=== PATIENT | male | born 1940 | race Caucasian/White ===

== ENCOUNTER 2016-12-01 04:56 | Inpatient (IN) ==
[2016-11-24 14:49] LABS: Appearance,Urine CLEAR; Bilirubin,Urine NEG (NEG); Color,Urine YELLOW; Glucose,Urine (UA) NEGATIVE (NEG); Leukocyte Esterase,Urine NEG /uL (NEG); Nitrate,Urine NEG (NEG); Protein,Urine NEG (NEG); Specific Gravity,Urine 1.009 (1.000-1.035); Urine Blood NEG mg/dL (<0.03); Urobilinogen,Urine NEG (NEG)
[2016-11-24 15:31] LABS: Basophils # (Auto) 0 K/mcL (0.0-0.3); Basophils % (Auto) 0.4 % (0.0-2.0); Eosinophils # (Auto) 0.1 K/mcL (0.0-0.7); Eosinophils % (Auto) 1.2 % (0.0-7.0); Granulocytes % (Auto) 70.2 % (38.0-78.0); Lymphocytes # (Auto) 1.7 K/mcL (1.5-4.8); Lymphocytes % (Auto) 19.7 % (15.5-49.0); Mean Cell Volume 94.3 fL (80.0-100.0); Mean Corpuscular HGB Conc 33.9 g/dL (31.0-36.0); Monocytes # (Auto) 0.7 K/mcL (0.1-0.9); Monocytes % (Auto) 8.5 % (1.0-12.0); Platelet Count 243 K/mcL (140-440); RBC 4.82 M/mcL (4.50-5.90); Red Cell Distribution Width 12.9 % (11.5-14.5)
[2016-11-24 16:14] LABS: Blood Urea Nitrogen 11 mg/dl (8-23)
[2016-12-01] MEDS ORDERED: oxyCODONE 10 MG TAB.ER.12H PO SCH (05:00)
[2016-12-01] MEDS ORDERED: ceFAZolin 1 GM VIAL IV SCH (05:00)
[2016-12-01] MEDS ORDERED: PREGABALIN 75 MG CAPSULE PO SCH (05:00)
[2016-12-01] MEDS ORDERED: CELECOXIB 200 MG CAPSULE PO SCH (05:00)
[2016-12-01] MEDS ORDERED: HEPARIN 20,000 UNIT/ML VIAL IR ONE (07:06)
[2016-12-01] MEDS ORDERED: LIDOCAINE HCL/PF 100 MG/5 ML SYRINGE IV ONE (07:40)
[2016-12-01] MEDS ORDERED: ePHEDrine 50 MG/ML AMPUL IV ONE (07:40)
[2016-12-01] MEDS ORDERED: GLYCOPYRROLATE 0.2 MG/ML VIAL IV ONE (07:40)
[2016-12-01] MEDS ORDERED: TRANEXAMIC ACID 1,000 MG/10 ML VIAL IV ONE ×2 (07:40→09:38)
[2016-12-01] MEDS ORDERED: PHENYLEPHRINE 10 MG/ML VIAL IV ONE (07:40)
[2016-12-01] MEDS ORDERED: MIDAZOLAM 5 MG/5 ML VIAL IV ONE (07:40)
[2016-12-01] MEDS ORDERED: PROPOFOL 200 MG/20 ML VIAL IV ONE (07:40)
[2016-12-01] MEDS ORDERED: DEXAMETHASONE 10 MG/ML VIAL IV ONE (07:40)
[2016-12-01] MEDS ORDERED: ONDANSETRON 4 MG/2 ML VIAL IV ONE (07:40)
[2016-12-01] MEDS ORDERED: NALOXONE HCL 0.4 MG/ML VIAL IV PRN (08:49)
[2016-12-01] MEDS ORDERED: fentaNYL 100 MCG/2 ML VIAL IV PRN (08:49)
[2016-12-01] MEDS ORDERED: FLUMAZENIL 0.1 MG/ML ML IV PRN (08:49)
[2016-12-01] MEDS ORDERED: ONDANSETRON 4 MG/2 ML VIAL IV PRN ×2 (08:49→09:38)
[2016-12-01] MEDS ORDERED: MEPERIDINE 25 MG/ML SYRINGE IV PRN (08:49)
[2016-12-01] MEDS ORDERED: diphenhydrAMINE 50 MG/ML VIAL IV PRN (08:49)
[2016-12-01] MEDS ORDERED: METOPROLOL TARTRATE 5 MG/5 ML VIAL IV PRN (08:49)
[2016-12-01] MEDS ORDERED: IPRATROPIUM/ALBUTEROL 3 ML AMPUL.NEB NEB PRN (08:49)
[2016-12-01] MEDS ORDERED: ePHEDrine 50 MG/ML AMPUL IV PRN (08:49)
[2016-12-01] MEDS ORDERED: HYDROmorphone 2 MG/ML SYRINGE IV PRN (08:49)
[2016-12-01] MEDS ORDERED: BENZOCAINE/MENTHOL 1 LOZENGE PO PRN ×2 (08:49→09:38)
[2016-12-01] MEDS ORDERED: METHOCARBAMOL 1,000 MG/10 ML VIAL IV PRN (08:49)
[2016-12-01] MEDS ORDERED: ATROPINE SULFATE 0.4 MG/ML VIAL IV PRN (08:49)
[2016-12-01] MEDS ORDERED: LACTATED RINGERS 1,000 ML IV SCH (09:00)
--- NOTE | 2016-12-01 09:37 | Brief Operative Note ---
Date of procedure: 12/01/16 Pre-op diagnosis: Left hip DJD Post-op diagnosis: same Procedure: Left total hip arthroplasty Grafts/Implants: Yes (Depuy Corail KLA 14 stem, +8.5 36mm head, 54 cup, +4 offset liner) Anesthesia: spinal, GLMA Findings: arthritis Complications: none Surgeon: Matt Viramontes Water [employer] Station Engineer: Elias Arriaza Estimated blood loss (cc): 150 Specimens Removed/Pathology: none sent Condition: stable Disposition: PACU
[2016-12-01] MEDS ORDERED: HYDROcodone/APAP 10/325MG TABLET PO PRN (09:38)
[2016-12-01] MEDS ORDERED: POLYETHYLENE GLYCOL 3350 17 GM PACKET PO PRN (09:38)
[2016-12-01] MEDS ORDERED: BISACODYL 10 MG SUPP.RECT PR PRN (09:38)
[2016-12-01] MEDS ORDERED: FLEETS ADULT ENEMA PR PRN (09:38)
[2016-12-01] MEDS ORDERED: MAGNESIUM HYDROXIDE 30 ML ORAL.SUSP PO PRN (09:38)
[2016-12-01] MEDS ORDERED: KETOROLAC 15 MG/ML VIAL IV PRN (09:38)
--- NOTE | 2016-12-01 10:23 | XRay Report ---
CLINICAL INFORMATION: Postsurgical follow-up TECHNIQUE: Intraoperative fluoroscopy and spot films COMPARISON: None. FINDINGS: 0.7 minutes fluoroscopy utilized. Spot films were obtained during left hip replacement surgery IMPRESSION: Intraoperative fluoroscopy and left total hip arthroplasty Interpreted and Authenticated by: Sky Torrez 12/01/16
--- NOTE | 2016-12-01 10:27 | Operative Note ---
DATE OF OPERATION: 12/01/2016 PREOPERATIVE DIAGNOSIS: Left hip degenerative joint disease. POSTOPERATIVE DIAGNOSIS: Left hip degenerative joint disease. PROCEDURE PERFORMED: Left total hip arthroplasty through direct anterior approach using a DePuy Corail KLA coxa vara stem size 14 with a +8.5, 36 mm delta ceramic head ball, a 54 mm [place] cup with a high offset +4 liner. SURGEON: Matt Viramontes MD. ECOLOGY PROFESSOR: Reinaldo Arriaza PA-C. ANESTHESIA: Spinal plus general. DRAINS: None. SPECIMENS: Head and reamings, which were discarded. BLOOD LOSS: 150 mL. COMPLICATIONS: None. POSTOPERATIVE CONDITION: Stable. INDICATIONS FOR SURGERY: This is a 76-year-old male who has had progressive worsening left hip pain. Radiographs showed advanced degenerative arthrosis. FINDINGS AT SURGERY: As above. Post implantation showed satisfactory component position with near equalization of offset and mild limb lengthening. PROCEDURE IN DETAIL: The patient had been seen preoperatively and informed consent had been obtained after discussion of risks and benefits of surgery. Risks including, but not limited to, bleeding, possibly requiring transfusion; infection, possibly requiring implant removal and prolonged IV antibiotics; injury to surrounding structures such as nerves, blood vessels, anesthetic risks; incomplete or no resolution of symptoms; leg length discrepancy; dislocation; fracture; DVT and pulmonary embolus risks; and the possibility of needing further surgery. He understood these risks and wished to proceed. Correct operative site was marked in preoperative holding, and the patient was given spinal anesthesia. He was then taken to the operating room and general anesthesia given. The patient was carefully positioned on the fracture table and left lower extremity was carefully prepped and draped in normal sterile fashion, and a time-out was performed verifying patient name, operative site, and plan. Standard anterior approach incision was made with a scalpel through skin and subcutaneous tissue and then hemostasis obtained with Bovie cautery. Blunt dissection taken down onto the tensor fascia. There was a branch of the lateral femoral cutaneous nerve which was carefully dissected and retracted. We then irrigated with Irrisept and then placed a ring retractor. The tensor fascia was incised in line with the muscle belly and then careful blunt dissection taken medial to the muscle belly. Blunt cobra retractors were placed on the neck and circumflex vessels and vastus fascia were cut and coagulated. We did an anterior capsulectomy and capsule releases out to the trochanter, and then a corkscrew was placed in the femoral head. Osteotome was used under fluoro to identify our approximate neck cut trajectory. We then used the oscillating tip saw to make our neck cut osteotomy and the head was removed. Acetabulum was then exposed. Bone wax was placed on the cut bone surfaces, and the labrum was excised circumferentially, as well as soft tissue removed from the floor. Reaming began with direct medialization and then increasing angle and inclination until we got rim ream with a 53 reamer. We trialed a 54 trial and got press-fit, so a 54 three-hole [place] cup was opened. We then irrigated the acetabulum with Irrisept. After waiting a minute, we copiously pulse lavaged with saline and then impacted the cup at approximately 40 degrees of inclination and 25 degrees anteversion. Once the cup was fully seated, we had good press-fit, so we went ahead and placed a center hole cover. Anterior osteophyte was removed with a curved osteotome, and then a +4 lateralized liner was carefully impacted. Tabs were verified to be flush. We then removed traction from the leg, externally rotated it, and did our capsule release around the inferior neck and posterior neck. Leg was then extended and adducted. Box osteotome was used to gain canal entry and then a rongeur used to lateralize. A sharp tip awl was used to identify canal trajectory, and then a rasp was used to lateralize further. We then began sequentially broaching, initially with the Tri-Lock set. We went up until we had good press-fit at our neck cut level with the Tri-Lock. We placed a high offset trial with a +5 head ball and reduced the hip. We took AP of the nonoperative and operative hips, and we were quite a ways off of our offset. We had suspected this would be the case based off our preoperative templating, so at this point we switched over to Corail stem. We broached up to a size 12 and then used the KLA coxa vara neck trial. The +5 head ball was placed. The hip was reduced. The offset was good. Leg was slightly lengthened. We went ahead and dislocated the hip, and then we noted that the stem was rotationally unstable, so we reamed with flexible reamers up to a 13.5 and then got a 14 stem to seat down. We calcar planed down onto this and trialed with a +8, 5 head ball. This seemed to get us pretty close to our offset with only mild limb lengthening, so we dislocated again, removed the trial stem. A 14 high offset KLA Corail stem was opened. We irrigated the femoral canal with Irrisept. After waiting a minute, we pulse lavaged with saline. We then impacted the stem which seated fully on the neck cut and opened and then a +8.5, 36 delta head ball. The stem was carefully cleaned and dried and then head ball briskly impacted. The hip was reduced and final fluoro images were taken and saved. We then irrigated again with Irrisept. After a minute, again pulse lavaged. Then #1 Vicryl was used to close our tensor fascia, one running proximal and one running distal. A final Irrisept was done and then after a minute final saline, then 2-0 Monocryl for subcutaneous and doc for skin. Xeroform and sterile dressing were placed. The patient was then awakened, extubated, and transferred to recovery in stable condition. [email or web address] Job ID: [id number] Doc ID: [id number] Matt Viramontes MD
--- NOTE | 2016-12-01 10:33 | XRay Report ---
CLINICAL INFORMATION: Postop hip replacement TECHNIQUE: AP pelvis and left hip. Lateral left hip COMPARISON: None. FINDINGS: Status post left total hip arthroplasty. Acetabular and femoral head complements are in anatomic positions. Mild postsurgical soft tissue gas. IMPRESSION: Status post left total hip arthroplasty Interpreted and Authenticated by: Sky Torrez 12/01/16
[2016-12-01] MEDS: 0.9 % SODIUM CHLORIDE 1,000 ML IV SCH ×2 (10:54→20:52)
[2016-12-01] MEDS: 0.9 % SODIUM CHLORIDE 10 ML SYRINGE IV SCH ×2 (15:46→20:54)
[2016-12-01] MEDS: ceFAZolin 1 GM VIAL IV SCH ×2 (15:57→23:56)
[2016-12-01] MEDS: DOCUSATE SODIUM 100 MG CAPSULE PO SCH (20:48)
[2016-12-01] MEDS: ASPIRIN 325 MG ENTERIC COATED TABLET PO SCH (20:50)
[2016-12-01] MEDS ORDERED: SIMVASTATIN 10 MG TABLET PO SCH (21:00)
[2016-12-01] MEDS ORDERED: SENNOSIDES 1 TABLET PO SCH (21:00)
[2016-12-02] MEDS: 0.9 % SODIUM CHLORIDE 10 ML SYRINGE IV SCH (05:38)
--- NOTE | 2016-12-02 07:35 | Discharge Summary ---
[id number] from initiated Date: [] Patient: Vish Menard 76 y/o M admitted on 12/01/16 for Left Total Hip Arthroplasty. Chief Complaint: [] Discharge date: 12/02/16 Hospitalization Hospital course: Pt was admitted for a direct anterior total hip arthroplasty. He underwent the procedure on the day of admission. He was then transfer to the floor for IV pain meds, IV abx, and PT. He spent one night on the floor prior to discharge. He was discharged to home. Discharge diagnosis: L hip osteoarthrosis Exam - Exam Clean and dry: Yes Weight bearing status: as tolerated Ortho Discharge - KIN[facility] - Patient Instructions Diet: Regular Diet Activity: activity as tolerated Total Hip Protocol: Follow activity instructions as provided by Physical Therapy. Dressing Care: May shower in 2 days Patient Education: Total Hip Replacement (DC) Additional Instructions: Discharge Instructions: Do the exercises at home that physical therapy gave you. You are scheduled to start physical therapy at [facility] on November Take your prescription, photo ID, insurance cards, and current medication list with you to your first physical therapy appointment. Take your prescription to cook pickled meat any medication or equipment (such as walker, crutches, toilet riser or C.P.M.) Wear comfortable clothing for your physical therapy. Weight bearing as tolerated. You have the Aquacel Ag dressing, leave in place for 7 days then remove. If dressing becomes soiled (turns black), remove and use gauze 4x4 dressing and silvasorb ointment and change daily. Keep incision clean and dry. You may start showering on post op day #2. To avoid constipation while taking any narcotic pain medication, take an over the counter stool softener/laxative. Use ice packs as directed, on for 20 minutes at a time throughout the day. This and elevation will help with pain and swelling. Call your physician for fevers above 100.5 or pain not controlled by medication. Your prescriptions are with your discharge information. Some medications were electronically transmitted to your pharmacy of choice. - Follow Up Plan Follow Up Appointments: Matt Viramontes MD [Physician] - Disposition: Home, Self-Care Prognosis: Good Rehab Potential: Good Overall status at discharge: patient is progressing back to baseline - Orders For Discharge Prescriptions: Aspirin [Ecotrin] 325 mg PO BID #60 tab.ec HYDROcodone/APAP 5/325MG [[place] 5/325Mg] 1 tab PO Q6HP PRN #60 tablet PRN Reason: Pain Additional Discharge Orders: Physical Therapy at Discharge - [facility] Location: Determined By Patient Walker Location: Determined By Patient Pending Studies Resuscitation Status Full Code Diet Regular Diet Start TueDecember 01 Lunch Acetaminophen/Hydrocodone Bitart ([place] 10/325mg) 0 tab PO Q4HP PRN PRN Reason: Pain Last Admin: 12/01/16 20:50 Dose: 1 tab Aspirin (Ecotrin) 325 mg PO BID JACOBO Last Admin: 12/01/16 20:50 Dose: 325 mg Docusate Sodium (Colace) 100 mg PO BID JACOBO Last Admin: 12/01/16 20:48 Dose: 100 mg Morphine Sulfate (Morphine) 0 mg IV Q1HP PRN PRN Reason: Pain Last Admin: 12/01/16 10:54 Dose: 2 mg Senna (Senokot) 2 tab PO HS JACOBO Last Admin: 12/01/16 20:48 Dose: 2 tab Simvastatin (Zocor) 5 mg PO HS JACOBO Last Admin: 12/01/16 20:49 Dose: 5 mg Sodium Chloride (Saline Flush) 10 ml IV Q8 [facility] Last Admin: 12/02/16 05:38 Dose: Not Given Admin: 12/01/16 20:54 Dose: Not Given Admin: 12/01/16 15:46 Dose: Not Given Shift Summary 12/02/16 04:13 Shift Summary by Kimberly Bae Patient is post-op Left KINZA. A&Ox4. VSS with 2L O2 via nasal cannula to keep sats above 90. Placed FWW in room, but has only been up to bedside to use urinal. Has voided 850 ml since 1900. Patient denies any pain at this time. Dressing to left hip is CDI. Initialized on 12/02/16 04:13 - END OF NOTE
[2016-12-02] MEDS ORDERED: AMIODARONE HCL 200 MG TABLET PO SCH (08:00)
[2016-12-02] MEDS: DOCUSATE SODIUM 100 MG CAPSULE PO SCH (08:32)
[2016-12-02] MEDS: ASPIRIN 325 MG ENTERIC COATED TABLET PO SCH (08:33)
[2016-12-02] MEDS ORDERED: ISOSORBIDE MONONITRATE 30 MG TAB.XL.24H PO SCH (09:00)
== END 2016-12-02 12:00 | disposition home or self-care (01) | DRG 470 ==
LOC: MEDSUR 04:56
PROVIDERS: ADMIT Orthopaedic Surgery; ATTEND Orthopaedic Surgery

== ENCOUNTER 2018-04-13 15:00 | Inpatient (IN) ==
[2018-04-13 18:35] LABS: Appearance,Urine CLEAR; Bilirubin,Urine NEG (NEG); Color,Urine YELLOW; Glucose,Urine (UA) NEGATIVE (NEG); Leukocyte Esterase,Urine NEG /uL (NEG); Protein,Urine NEG (NEG); Specific Gravity,Urine 1.018 (1.000-1.035); Urine Blood NEG mg/dL (<0.03); Urobilinogen,Urine NEG (NEG)
[2018-04-13 19:24] LABS: Blood Urea Nitrogen 14 mg/dl (8-23)
[2018-04-13 19:56] LABS: Basophils # (Auto) 0 K/mcL (0.0-0.3); Basophils % (Auto) 0.5 % (0.0-2.0); Eosinophils # (Auto) 0.2 K/mcL (0.0-0.7); Eosinophils % (Auto) 2.7 % (0.0-7.0); Granulocytes % (Auto) 68.2 % (38.0-78.0); Lymphocytes # (Auto) 1.5 K/mcL (1.5-4.8); Mean Cell Volume 95.9 fL (80.0-100.0); Mean Corpuscular Hemoglobin 32.6 pg (26.0-34.0); Monocytes # (Auto) 0.7 K/mcL (0.1-0.9); Monocytes % (Auto) 8.6 % (1.0-12.0); Platelet Count 216 K/mcL (140-440); RBC 4.33 M/mcL (4.50-5.90); Red Cell Distribution Width 13.5 % (11.5-14.5)
[2018-04-19] MEDS ORDERED: CELECOXIB 200 MG CAPSULE PO SCH ×2 (07:00→09:30)
[2018-04-19] MEDS ORDERED: PREGABALIN 75 MG CAPSULE PO SCH ×2 (07:00→09:30)
[2018-04-19] MEDS ORDERED: oxyCODONE 10 MG TAB.ER.12H PO SCH ×2 (07:00→09:30)
[2018-04-19] MEDS ORDERED: ceFAZolin 1 GM VIAL IV SCH ×2 (07:00→10:30)
[2018-04-19] MEDS ORDERED: TRANEXAMIC ACID 1,000 MG/10 ML VIAL IV ONE (11:15)
[2018-04-19] MEDS ORDERED: KETAMINE 100 MG/ML ML IV ONE (11:15)
[2018-04-19] MEDS ORDERED: MIDAZOLAM 2 MG/2 ML VIAL IV ONE (11:15)
[2018-04-19] MEDS ORDERED: ONDANSETRON 4 MG/2 ML VIAL IV ONE (11:15)
[2018-04-19] MEDS ORDERED: GLYCOPYRROLATE 0.2 MG/ML VIAL IV ONE (11:15)
[2018-04-19] MEDS ORDERED: LIDOCAINE HCL/PF 100 MG/5 ML SYRINGE IV ONE (11:15)
[2018-04-19] MEDS ORDERED: PROPOFOL 200 MG/20 ML VIAL IV ONE (11:15)
[2018-04-19] MEDS ORDERED: ePHEDrine 50 MG/ML AMPUL IV ONE (11:15)
[2018-04-19] MEDS ORDERED: PHENYLEPHRINE 10 MG/ML VIAL IV ONE (11:15)
[2018-04-19] MEDS ORDERED: HEPARIN 10,000 UNIT/ML VIAL IR ONE (11:56)
[2018-04-19] MEDS ORDERED: HYDROmorphone 2 MG/ML VIAL IV PRN (12:33)
[2018-04-19] MEDS ORDERED: IPRATROPIUM/ALBUTEROL 3 ML AMPUL.NEB NEB PRN (12:33)
[2018-04-19] MEDS ORDERED: ACETAMINOPHEN 1,000 MG/100 ML BOTTLE IV ONE (12:33)
[2018-04-19] MEDS ORDERED: MEPERIDINE 25 MG/ML SYRINGE IV PRN (12:33)
[2018-04-19] MEDS ORDERED: METHOCARBAMOL 1,000 MG/10 ML VIAL IV PRN (12:33)
[2018-04-19] MEDS ORDERED: fentaNYL 100 MCG/2 ML VIAL IV PRN (12:33)
[2018-04-19] MEDS ORDERED: LACTATED RINGERS 1,000 ML IV SCH (12:45)
[2018-04-19] MEDS ORDERED: MAGNESIUM HYDROXIDE 30 ML ORAL.SUSP PO PRN (12:47)
[2018-04-19] MEDS ORDERED: KETOROLAC 15 MG/ML VIAL IV PRN (12:47)
[2018-04-19] MEDS ORDERED: POLYETHYLENE GLYCOL 3350 17 GM PACKET PO PRN (12:47)
[2018-04-19] MEDS ORDERED: BISACODYL 10 MG SUPP.RECT PR PRN (12:47)
[2018-04-19] MEDS ORDERED: BENZOCAINE/MENTHOL 1 LOZENGE PO PRN (12:47)
[2018-04-19] MEDS ORDERED: TRANEXAMIC ACID 1,000 MG/10 ML VIAL IV SCH (12:47)
[2018-04-19] MEDS ORDERED: FLEETS ADULT ENEMA PR PRN (12:47)
[2018-04-19] MEDS ORDERED: ONDANSETRON 4 MG/2 ML VIAL IV PRN (12:47)
--- NOTE | 2018-04-19 12:47 | Brief Operative Note ---
Date of procedure: 04/19/18 Pre-op diagnosis: R hip severe DJD Post-op diagnosis: same Procedure: Right anterior total hip arthroplasty Grafts/Implants: Yes (Depuy Corail KLA 12 coxa vara, +8.5 36 delta head, 54 cup , +4 liner) Anesthesia: spinal, GLMA Findings: severe arthritis Complications: none Surgeon: Matt Viramontes Content Writer: Bhanu Chilel Estimated blood loss (cc): 250 Specimens Removed/Pathology: none sent Condition: stable Disposition: PACU
--- NOTE | 2018-04-19 13:50 | XRay Report ---
CLINICAL INFORMATION: Post-op Total Hip COMPARISON: None. FINDINGS: Right total hip prostheses in anatomic alignment. The older left total hip prostheses also remains in anatomic alignment without loosening or infection. No osseous abnormality. Soft tissue swelling over the surgical site as expected IMPRESSION: Negative Interpreted and Authenticated by: Sky Currie 04/19/18
--- NOTE | 2018-04-19 13:51 | XRay Report ---
CLINICAL INFORMATION: INTRA OP RIGHT ANTERIOR TOTAL HIP ARTHROPLASTY COMPARISON: None. FINDINGS: Multiple digital images from the OR, in various stages of right total hip prostheses, are submitted. Final film shows right total hip prostheses in anatomic alignment. No osseous abnormality IMPRESSION: Right total hip prostheses in anatomic alignment. Interpreted and Authenticated by: Sky Currie 04/19/18
--- NOTE | 2018-04-19 14:57 | Operative Note ---
DATE OF OPERATION: 04/19/2018 PREOPERATIVE DIAGNOSIS: Right hip severe osteoarthritis. POSTOPERATIVE DIAGNOSIS: Right hip severe osteoarthritis. PROCEDURE PERFORMED: Right anterior total hip arthroplasty placing a DePuy Corail KLA coxa vara size 12 stem, a +8.5, 36 mm delta ceramic head ball, a 54 [place] cup with a +4 lateralized liner. SURGEON: Matt Viramontes MD DIETARY DIRECTOR: Bhanu Chilel PA-C ANESTHESIA: Spinal plus general. DRAINS: None. SPECIMENS: Femoral head and reamings, which were discarded. BLOOD LOSS: 250 mL COMPLICATIONS: None. POSTOPERATIVE CONDITION: Stable. INDICATIONS FOR SURGERY: This is a 78-year-old male who has had progressive worsening severe right hip pain. He had a left total hip arthroplasty performed by me approximately a year and a half ago with good result and wished to proceed on the right. FINDINGS AT SURGERY: He did have a severe [id number] arthritis with a quite severe varus neck angle. Post implantation showed excellent equalization of leg lengths and offset. PROCEDURE IN DETAIL: The patient had been seen preoperatively. Informed consent had been obtained after discussion of risks, benefits of surgery. Risks including, but not limited to, bleeding, possibly requiring transfusion; infection, possibly requiring implant removal and prolonged IV antibiotics; injury to nerves, blood vessels other surrounding structures, at particular risk the lateral femoral cutaneous nerve possibly resulting in lateral thigh numbness, anesthetic risks; incomplete or no resolution of symptoms; leg length discrepancy; dislocation; fracture; DVT and pulmonary embolus risks; and the possibility of needing further revision surgery. He understood and wished to proceed. Correct operative site was marked in preoperative holding and patient received spinal anesthesia. He was then taken to the operating room. LMA general was given. He was carefully positioned on the fracture table and a timeout was performed verifying patient name, operative site, and plan. Standard anterior approach incision was made with a scalpel through skin and subcutaneous tissue. IrriSept was irrigated. Blunt dissection was used to undermine circumferentially directly over the tensor fascia and then a ring retractor was placed after IrriSept was irrigated. We then incised the tensor fascia in line with muscle fibers. Careful blunt dissection was taken medial to the muscle belly and then blunt cobra retractors were placed on the superior and inferior neck. Circumflex vessels were coagulated and cut and vastus fascia was split distally. An anterior capsulectomy was performed and capsule releases taken out towards the trochanter. A corkscrew was placed in the femoral head. Osteotome was used under fluoro to identify our approximate neck cut trajectory. We then made our neck cut. We did have a difficult time getting the femoral head out so I did a second cut on the femoral head fragment to take a napkin ring of bone off of the neck. This then allowed me to remove the femoral head. We then exposed the acetabulum and removed soft tissue from the periphery and floor and then used a reamer to directly medialize under fluoroscopy. We then began increasing reamer size and angle until a 53, we got rim ream. We opened a 54 3-hole [place] cup. The acetabulum was irrigated with IrriSept, after a minute pulse lavaged copiously with saline. The ME 1000 was used to impact the cup at approximately 35 degrees of inclination and 30 degrees of anteversion. We then went ahead and after getting good pressfit removed the ME 1000 from the cup and placed a center hole cover. Based off of templating on his opposite side we went ahead and just opened a +4 lateralized AltrX liner. After the center hole cover was placed the liner was carefully aligned and impacted. We did remove some bone off the anterior portion of the acetabulum which was osteophyte. We then removed traction from the leg. It was externally rotated and then a capsule was released around the medial and posterior neck. The leg was then extended and adducted and capsule was released towards the greater trochanter and along the posterior neck. We then used a box osteotome to gain canal entry. An awl was used to identify trajectory. He did have very thick cortices distally. We used a rongeur and rasp to lateralize and then began sequentially broaching with the ME 1000 using the Corail broaches. We broached up to a size 12, which seated just a little below our neck cut. We then went ahead and calcar planed down onto this. A KLA high offset neck trial was placed along with a +5 head ball. The hip was reduced. Fluoro was brought in. AP pelvis verified neutral rotation and AP of the nonoperative and operative hips were taken and overlaid. The size 12 stem did appear to fit the canal well. We did have relatively equal leg lengths offset, slightly less than the opposite side, so we went ahead and redislocated and the trial was removed. A definitive size 12 carotid KLA coxa vara stem was opened. Femoral canal was irrigated with IrriSept, after a minute we copiously pulse lavaged with saline and then ME 1000 was used to impact the stem. This did seat all the way down on the neck. We did trial a +8.5 which did appear to equalize offset, so we went ahead and opened a +8.5 head ball. Hip was redislocated. The head trial was removed. The stem was carefully cleaned and dried and then the definitive head ball was impacted on to the stem with the ME 1000. We then reduced the hip. Final fluoro images were taken and saved and printed. We then filled the joint with IrriSept, after a minute pulse lavaged with saline; #1 Vicryl was then used to close with a running stitch the tensor fascia, one running proximal and one running distal. Ring retractor was removed and a final IrriSept irrigation was done, after a minute final pulse lavage, and then 2-0 Monocryl was used for subcutaneous and doc for skin. Xeroform sterile dressings were applied. The patient was then awakened, extubated, and transferred to recovery in stable condition. [email or web address] Job ID: [id number] Doc ID: [id number] Matt Viramontes MD
[2018-04-19] MEDS: 0.9 % SODIUM CHLORIDE 10 ML SYRINGE IV SCH ×2 (15:13→20:19)
[2018-04-19] MEDS: 0.9 % SODIUM CHLORIDE 1,000 ML IV SCH ×2 (18:23→22:58)
[2018-04-19] MEDS: ceFAZolin 1 GM VIAL IV SCH (20:15)
[2018-04-19] MEDS: DOCUSATE SODIUM 100 MG CAPSULE PO SCH (20:17)
[2018-04-19] MEDS: ASPIRIN 325 MG ENTERIC COATED TABLET PO SCH (20:17)
[2018-04-19] MEDS ORDERED: ATORVASTATIN 20 MG TABLET PO SCH (21:00)
[2018-04-19] MEDS ORDERED: SENNOSIDES 1 TABLET PO SCH (21:00)
[2018-04-20] MEDS: ceFAZolin 1 GM VIAL IV SCH (03:21)
[2018-04-20] MEDS: 0.9 % SODIUM CHLORIDE 10 ML SYRINGE IV SCH (05:13)
--- NOTE | 2018-04-20 07:09 | Discharge Summary ---
Providers - Providers Patient information: Note initiated : 04/20/18 at 7:05 am Service Date, if different from initiated Date: [] Patient: Vish Menard 78 y/o M admitted on 04/19/18 for Right Total Hip Arthroplasty. Chief Complaint: [] Discharge date: 04/20/18 Hospitalization Hospital course: Patient was admitted after right KINZA for pain control and PT. His stay was uneventful. Discharge diagnosis: s/p right total hip arthroplasty Exam - Exam Incision healing: Yes Incision draining: No Weight bearing status: full Ortho Discharge - KIN[facility] - Patient Instructions Diet: Regular Diet Activity: activity as tolerated Total Hip Protocol: Follow activity instructions as provided by Physical Therapy. Dressing Care: Aquacel Ag - leave on for 5 days - Follow Up Plan Follow Up Appointments: Elias Arriaza PA-C [Physician Supervisor Harvesting] - 05/04/18 1:10 pm Disposition: Home, Self-Care Prognosis: Good Rehab Potential: Good Overall status at discharge: patient is progressing back to baseline - Orders For Discharge Prescriptions: Aspirin 325 mg PO BID #60 tab Hydrocodone/APAP 7.5/325Mg [[place] 7.5-325Mg] 1 - 2 tab PO Q4HP PRN #60 tab PRN Reason: Pain Additional Discharge Orders: Physical Therapy at Discharge - [facility] Location: None Selected Pending Studies Resuscitation Status Full Code Diet Regular Diet Start TueApr 19 1249 Aspirin (Ecotrin) 325 mg PO BID [facility] Last Admin: 04/19/18 20:17 Dose: 325 mg Atorvastatin Calcium (Lipitor) 10 mg PO HS [facility] Last Admin: 04/19/18 20:17 Dose: 10 mg Docusate Sodium (Colace) 100 mg PO BID [facility] Last Admin: 04/19/18 20:17 Dose: 100 mg Sodium Chloride (Sodium Chloride 0.9%) 1,000 mls @ 100 mls/hr IV .Q10H [facility] Last Infusion: 04/20/18 05:12 Dose: 0 mls/hr Admin: 04/19/18 22:58 Dose: Not Given Admin: 04/19/18 18:23 Dose: 100 mls/hr Senna (Senokot) 2 tab PO HS [facility] Last Admin: 04/19/18 20:18 Dose: 2 tab Sodium Chloride (Saline Flush) 10 ml IV Q8 [facility] Last Admin: 04/20/18 05:13 Dose: 10 ml Admin: 10/03/18 20:19 Dose: Not Given Admin: 04/19/18 15:13 Dose: Not Given Shift Summary 04/20/18 04:49 Shift Summary by Kimberly [email or web address]. VSS; has remained bradycardic since admission; on 1L O2 via NC. Up with FWW and SBA. Dressing to surgical site to right hip is CDI. Patient has denied the need for pain medication; currently rating pain 1/10. Voiding adequate amounts; last PVR was 88ml. 18 gauge to left hand is SL. Will update at bedside. Initialized on 04/20/18 04:49 - END OF NOTE
[2018-04-20] MEDS ORDERED: AMIODARONE HCL 200 MG TABLET PO SCH (08:00)
[2018-04-20] MEDS: ASPIRIN 325 MG ENTERIC COATED TABLET PO SCH (08:23)
[2018-04-20] MEDS: DOCUSATE SODIUM 100 MG CAPSULE PO SCH (08:23)
[2018-04-20] MEDS: HYDROCODONE/APAP 7.5/325MG TABLET PO PRN ×2 (08:30→11:06)
[2018-04-20] MEDS: 0.9 % SODIUM CHLORIDE 1,000 ML IV SCH (08:38)
[2018-04-20] MEDS ORDERED: ISOSORBIDE MONONITRATE 30 MG TAB.XL.24H PO SCH (09:00)
[2018-04-20] MEDS ORDERED: amLODIPine 5 MG TABLET PO SCH (09:00)
[2018-04-20] MEDS ORDERED: GLUCOSAMINE/CHONDROITIN SULF A 1 CAP CAPSULE PO SCH (09:00)
== END 2018-04-20 14:10 | disposition home or self-care (01) | DRG 470 ==
LOC: MEDSUR 04-19 08:32
PROVIDERS: ADMIT Orthopaedic Surgery; ATTEND Orthopaedic Surgery